=== PATIENT | female | born 1985 | race Hispanic/Latino ===

== ENCOUNTER 2017-01-07 09:36 | Emergency (ER) | payer OTHER ==
[2017-01-07 09:42] VITALS: RESP 18
--- NOTE | 2017-01-07 10:06 | C.PDOC ---
History Of Present Illness 31 y/o female with Hx of Fibroids and Endometriosis presents to ED with complaints of pelvic pain since this morning. Patient reports she is currently with menses and reports nausea. Patient states she has had similar episodes in the past and currently denies fever or any other complaints at this time. PELVIC PAIN SINCE THIS MORNING. CURRENTLY W MENSES, HO FIBROIDS AND ENDOMETRIOSIS. PS HAS HAD SIM EPISODES IN PAST. +NAUSEA. NO FEVER, EXAM MOD DIST NONTOXIC ABD +SUPRAPUB/PELVIC TEND MILD SOFT NO RG REMAINDER NEG Time Seen by Provider: 01/07/17 09:57 Chief Complaint (Nursing): Female Genitourinary History Per: Patient History/Exam Limitations: no limitations Onset/Duration Of Symptoms: Hrs Current Symptoms Are (Timing): Still Present Quality Of Discomfort: "Pain" Associated Symptoms: Nausea Past Medical History Reviewed: Historical Data, Nursing Documentation, Vital Signs Vital Signs: Last Vital Signs Temp 97.9 F 01/07/17 09:41 Pulse 71 01/07/17 09:41 Resp 18 01/07/17 09:41 BP 117/80 01/07/17 09:41 Pulse Ox 100 01/07/17 10:46 Surgical History: No Surg Hx Family History: States: No Known Family Hx - Social History Hx Alcohol Use: No Hx Substance Use: No - Immunization History Hx Tetanus Toxoid Vaccination: No Hx Influenza Vaccination: No Hx Pneumococcal Vaccination: No Review Of Systems Except As Marked, All Systems Reviewed And Found Negative. Constitutional: Negative for: Fever, Chills Gastrointestinal: Positive for: Nausea Genitourinary: Positive for: Pelvic Pain Musculoskeletal: Negative for: Back Pain Skin: Negative for: Rash Physical Exam - Physical Exam Appears: Non-toxic, Other (Moderate distress) Head: Normacephalic Oral Mucosa: Moist Neck: Normal ROM, Supple Chest: Symmetrical Cardiovascular: Rhythm Regular, No Murmur Respiratory: Normal Breath Sounds, No Rales, No Rhonchi, No Wheezing Gastrointestinal/Abdominal: Soft, Tenderness (mild to Suprapubic and Pelvic area ), No Guarding, No Rebound Extremity: Normal ROM, Capillary Refill (<2 seconds) Neurological/Psych: Oriented x3 ED Course And Treatment O2 Sat by Pulse Oximetry: 100 (RA) Pulse Ox Interpretation: Normal Reevaluation Time: 11:30 Reassessment Condition: Improved (APPEARS MUCH IMPROVED, COMFORTABLE. PS NOW ASYMPT. ADVISE POSSIBLE NEED FOR OBGYN REEVAL, PAIN MGMT) Disposition Counseled Patient/Family Regarding: Studies Performed, Diagnosis, Need For Followup, Rx Given - Disposition Referrals: [facility] [Outside] [facility] [Outside] Jeb Stovall MD [Staff Provider] - Disposition: HOME/ ROUTINE Disposition Time: 11:31 Condition: IMPROVED Prescriptions: Naproxen 500 mg PO BID #30 tab Ondansetron [Zofran Odt] 4 mg PO TID PRN #9 odt PRN Reason: Nausea/Vomiting oxyCODONE/Acetaminophen [Percocet 5/325 mg Tab] 1 tab PO QID PRN #14 tab PRN Reason: Pain Instructions: Endometriosis (ED), Uterine Fibroids (ED) Forms: [employer] (Moroccan) - Clinical Impression Clinical Impression: Pelvic pain, Endometriosis, Fibroid - Scribe Statement The provider has reviewed the documentation as recorded by the Katelynibfabi Naylor All medical record entries made by the Katelynibfabi were at my direction and personally dictated by me. I have reviewed the chart and agree that the record accurately reflects my personal performance of the history, physical exam, medical decision making, and the department course for this patient. I have also personally directed, reviewed, and agree with the discharge instructions and disposition.
[2017-01-07] MEDS ORDERED: HYDROmorphone 0.5 mg/0.5 ml ISec IM STA (10:12)
[2017-01-07] MEDS ORDERED: HYDROmorphone 0.5 mg/0.5 ml ISec ONE (10:31)
[2017-01-07 11:31] LABS: RBC URINE 121 /hpf (0-3); URINE BILIRUBIN NEGATIVE (NEGATIVE); URINE BLOOD 3+ (NEGATIVE); URINE COLOR Yellow (YELLOW); URINE GLUCOSE (UA) NORMAL (Normal); URINE KETONE 1+ mg/dL (NEGATIVE); URINE LEUKOCYTE ESTERASE NEG Leu/uL (Negative); URINE PROTEIN NEGATIVE (NEGATIVE); URINE UROBILINOGEN NORMAL mg/dL (0.2-1.0); WBC URINE 2 /hpf (0-5)
[2017-01-07 11:53] VITALS: BP 111/71; PULSE 72; TEMP 97.1; O2SAT 99
== END 2017-01-07 11:57 | disposition home or self-care (01) ==
LOC: EDBD 09:36 → C.ER 09:36
DX: N80.9 Endometriosis, unspecified (principal); D25.9 Leiomyoma of uterus, unspecified; R10.2 Pelvic and perineal pain
CPT/HCPCS: 81001; 87086; 96372; 99284; J1170; J1885; J2765